=== PATIENT | male | born 1990 | race Two or more races ===

== ENCOUNTER 2018-09-04 19:23 | Emergency (ER) | payer OTHER ==
--- NOTE | 2018-09-04 20:25 | ED ---
Lower Extremity - HPI Summary HPI Summary: Pt is a 28 y/o M presenting to the ED with a chief complaint of R calf pain. He was playing soccer in a pickup game when he stretched his leg very quickly and felt a sudden pain in his R calf. The pain worsens with movement and touch, and alleviates with rest. He is unable to walk on it. He denies trauma to the area and current fever. - History of Current Complaint Chief Complaint: EDExtremityLower Stated Complaint: TORN CALF PER PT Hx Obtained From: Patient Mechanism Of Injury: Other - playing soccer, stretching Onset of Pain: Immediate Onset/Duration: Still Present Severity Initially: Moderate Severity Currently: Moderate Pain Intensity: 7 Pain Scale Used: 0-10 Numeric Timing: Constant, Lasting Hours Location: Is Discrete @ - R calf Character Of Pain: Sharp Associated Signs And Symptoms: Positive: Negative Aggravating Factor(s): Standing, Ambulation, Movement, Weight Bearing Alleviating Factor(s): Rest Able to Bear Weight: No - Allergies/Home Medications Allergies/Adverse Reactions: Allergies Allergy/AdvReac Type Severity Reaction Status Date / Time No Known Allergies Allergy Verified 09/04/18 19:26 Home Medications: Home Medications NK [No Home Medications Reported] 09/04/18 [History Confirmed 09/04/18] PMH/Surg Hx/FS Hx/Imm Hx Previously Healthy: Yes Endocrine/Hematology History: Denies: Hx Diabetes Cardiovascular History: Denies: Hx Hypertension Infectious Disease History: No Infectious Disease History: Reports: Traveled Outside the [place] in Last 30 Days - Family History Known Family History: Negative: Cardiac Disease - Social History Alcohol Use: None Hx Substance Use: No Substance Use Type: Reports: None Hx Tobacco Use: No Smoking Status (MU): Never Smoked Tobacco Review of Systems Negative: Fever Positive: Myalgia All Other Systems Reviewed And Are Negative: Yes Physical Exam - Summary Physical Exam Summary: Appearance: Well-appearing, Well-nourished, lying in bed comfortable Skin: Warm, dry, no obvious rash Eyes: sclera anicteric, no conjunctival pallor ENT: mucous membranes moist Neck: deferred Respiratory: No signs of respiratory distress Cardiovascular: Appears well perfused, pulses are nml Abdomen: deferred Musculoskeletal: R calf muscle quite tender, mild edema present, nml integrity in Achilles tendon, no step-off on distal muscle or tendon, and Yeh squeeze test is negative. Neurological: Awake and alert, mentation is normal, speech is fluent and appropriate Psychiatric: affect is normal, does not appear anxious or depressed Triage Information Reviewed: Yes Vital Signs On Initial Exam: Initial Vitals Temp Pulse Resp BP Pulse Ox 99.0 F 92 16 128/72 95 09/04/18 19:24 09/04/18 19:24 09/04/18 19:24 09/04/18 19:24 09/04/18 19:24 Vital Signs Reviewed: Yes Diagnostics - Vital Signs Vital Signs Temp Pulse Resp BP Pulse Ox 09/04/18 19:24 99.0 F 92 16 128/72 95 - Laboratory Lab Statement: Any lab studies that have been ordered have been reviewed, and results considered in the medical decision making process. Lower Extremity Course/Dx - Course Course Of Treatment: The pt is a 28 y/o M presenting to the ED with a chief complaint of R calf pain onset [employer] when stretching for a pickup soccer game. The pain is worse with movement, alleviated when resting, and he is unable to bear weight completely. He denies any associated trauma or fever. The pt's R calf is tender and has mild edema upon examination, with no step-off on the distal muscle or tendon, and a negative Yeh squeeze test. He will be discharged with a dx of muscle strain and instructions to followup with orthopedics in outpatient for full recovery, and the pt is agreeable with this plan. - Diagnoses Provider Diagnoses: Strain of calf muscle Discharge - Sign-Out/Discharge Documenting (check all that apply): Patient Departure Patient Received Moderate/Deep Sedation with Procedure: No - Discharge Plan Condition: Stable Disposition: HOME Patient Education Materials: Muscle Strain (ED) Referrals: Jeremiah Tolliver MD [Medical Doctor] - 1 Week Additional Instructions: For now, rest, ice 4 tiimes a day and elevation will help start the healing process. Call Dr. Tolliver's office on Thursday to make an appt for about a week out from the injury. Use the crutches for getting around in the meantime. OTC analgesics can help with pain, alleve 1 pill twice daily or motrin 2 pills three times a day. - Billing Disposition and Condition Condition: STABLE Disposition: Home - Attestation Statements Document Initiated by Scribe: Yes Documenting Scribe: Lori O'Seamus Provider For Whom Scribe is Documenting (Include Credential): Serg Espinosa MD. Scribe Attestation: ILori, scribed for Serg Espinosa MD. on 09/05/18 at 0548. Scribe Documentation Reviewed: Yes Provider Attestation: The documentation as recorded by the scribe, Lori Leal accurately reflects the service I personally performed and the decisions made by me, Serg Espinosa MD. Status of Scribe Document: Viewed
[2018-09-04 21:45] VITALS: BP 122/66
== END 2018-09-04 21:44 | disposition home or self-care (01) ==
LOC: ED 19:23
DX: S86.911A Strain of unspecified muscle(s) and tendon(s) at lower leg level, right leg, initial encounter (principal); X50.9XXA Other and unspecified overexertion or strenuous movements or postures, initial encounter; Y93.66 Activity, soccer; Y92.322 Soccer field as the place of occurrence of the external cause
CPT/HCPCS: 99282